=== PATIENT | female | born 2005 | race Caucasian/White ===

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

== ENCOUNTER → 2024-01-14 | Outpatient (CLI) | payer OTHER ==
[2024-01-14 13:41] LABS: HEMATOCRIT 39.3 % (36.0-47.0); HEMOGLOBIN 12.8 g/dl (12.0-15.5); MEAN CORPUSCULAR HEMOGLOBIN 29.2 pg (27.0-33.0); MEAN CORPUSCULAR HGB CONC 32.6 g/dl (32.0-36.5); MEAN CORPUSCULAR VOLUME 89.5 fl (80.0-96.0); PLATELET COUNT, AUTOMATED 338 10^3/uL (150-450); RED BLOOD COUNT 4.39 10^6/uL (4.00-5.40); WHITE BLOOD COUNT 7.2 10^3/uL (4.0-10.0)
[2024-01-14 14:12] LABS: BLOOD UREA NITROGEN 10 MG/DL (9-23); CALCIUM LEVEL 10.3 MG/DL (8.5-10.1); CARBON DIOXIDE LEVEL 29 MMOL/L (20-31); CHLORIDE LEVEL 104 MMOL/L (98-107); CREATININE FOR GFR 0.45 MG/DL (0.55-1.30); GLUCOSE, FASTING 75 MG/DL (60-100); POTASSIUM SERUM 4.2 MMOL/L (3.5-5.1); SODIUM LEVEL 139 MMOL/L (136-145)
== END ==
LOC: M LAB 12:26
PROVIDERS: ATTEND Plastic Surgery Surgery of the Hand
DX: N62 Hypertrophy of breast (principal)

== ENCOUNTER 2024-01-21 08:15 | Observation (INO) | payer OTHER ==
[~2024-01-21] VITALS: Ht 162.6 cm; Wt 64.0 kg
[2024-01-21] VITALS (7 sets, daily range): BP systolic 120–126; BP diastolic 69–73; TEMP 97.3–97.9; O2SAT 95–98
[2024-01-21] MEDS ORDERED: propofoL 200 MG/20 ML VIAL As Ordered ONE (09:21)
[2024-01-21] MEDS ORDERED: LIDOCAINE 2% 100MG/5ML SDV (FOR ANES.) As Ordered ONE (09:21)
[2024-01-21] MEDS ORDERED: ROCURONIUM BROMIDE 50MG/5ML VIAL As Ordered ONE (09:21)
[2024-01-21] MEDS ORDERED: fentaNYL 100 MCG/2 ML INJECTION As Ordered ONE (09:22)
[2024-01-21] MEDS ORDERED: MIDAZOLAM INJ 2MG/2ML VIAL As Ordered ONE (09:22)
[2024-01-21] MEDS: ceFAZolin SOD 2 GM in IV 1 EA IV ONE ×2 (10:54→16:57)
[2024-01-21] MEDS: HEPARIN SOD (PORCINE) 5000UNITS/ML 1ML VIAL/SYRINGE SQ ONE (10:58)
[2024-01-21] MEDS ORDERED: HYDROmorphone HCL 2MG/ML 1ML VIAL As Ordered ONE (11:20)
[2024-01-21] MEDS ORDERED: ONDANSETRON 4MG 2ML VIAL As Ordered ONE (11:24)
[2024-01-21] MEDS ORDERED: ACETAMINOPHEN 1000MG 100ML IV BAG As Ordered ONE (11:24)
[2024-01-21] MEDS ORDERED: METOCLOPRAMIDE INJ 10MG/2ML VIAL As Ordered ONE (11:24)
[2024-01-21] MEDS ORDERED: PHENYLephrine 500MCG 5ML (100MCG/ML) SYRINGE As Ordered ONE (11:45)
[2024-01-21] MEDS ORDERED: ePHEDrine SULFATE 25 MG/5 ML(5MG/ML) SYRINGE As Ordered ONE (12:04)
[2024-01-21] MEDS ORDERED: SUGAMMADEX SODIUM 500 MG/5 ML VIAL (BRIDION) As Ordered ONE (13:13)
[2024-01-21] MEDS: GENTAMICIN SULF 80MG/2ML VIAL As Ordered ONE (14:22)
[2024-01-21] MEDS: LIDOCAINE W/EPINEPHRINE 1% 20ML VIAL As Ordered ONE (14:22)
[2024-01-21] MEDS ORDERED: PERCOCET 5MG/325MG TAB PO PRN (15:15)
[2024-01-21] MEDS ORDERED: ACETAMINOPHEN TAB 650MG DOSE (2X325MG) PO PRN (15:15)
[2024-01-21] MEDS ORDERED: METOCLOPRAMIDE INJ 10MG/2ML VIAL IV PRN (15:25)
[2024-01-21] MEDS ORDERED: oxyCODONE 5MG TAB PO PRN (15:25)
[2024-01-21] MEDS ORDERED: HYDROMORPHONE HCL 0.5 MG/ 0.5 ML SYRINGE IV PRN (15:25)
[2024-01-21] MEDS ORDERED: fentaNYL 100 MCG/2 ML INJECTION IV PRN (15:25)
[2024-01-21] MEDS: ONDANSETRON 4MG 2ML VIAL IV PRN ×2 (16:04→19:45)
[2024-01-21] MEDS: LR 1,000 ML IV SCH (16:57)
[2024-01-21] MEDS: traMADol 50 MG TAB PO PRN (17:45)
[2024-01-22 02:00] VITALS: BP 121/67; TEMP 97.9; O2SAT 96
[2024-01-22 04:01] VITALS: BP 140/79; TEMP 97.9; O2SAT 96
[2024-01-22] MEDS ORDERED: TRAM50TA2 PO (10:32)
== END 2024-01-22 11:30 | disposition home or self-care (01) ==
LOC: M SDC 08:15 → M ED INP 08:16 → M MS5PR 16:20
PROVIDERS: ADMIT Plastic Surgery Surgery of the Hand; ATTEND Plastic Surgery Surgery of the Hand
DX: N62 Hypertrophy of breast (principal); M54.6 Pain in thoracic spine; M95.4 Acquired deformity of chest and rib
CPT/HCPCS: 19318; 81025; 88305; 96365; 96375; 96376; C9290; J0131; J0665; J0690; J1100; J1170; J1580; J2250; J2371; J2405; J2765; J3010

== ENCOUNTER → 2025-07-09 | Outpatient (REF) | payer OTHER ==
[~2025-07-09] MED LIST: TRAM50TA2 PO
[2025-07-09 18:52] LABS: GC DNA AMPLIFICATION NEGATIVE (NEGATIVE)
== END ==
LOC: M LAB REF 16:45
PROVIDERS: ATTEND Pediatrics
DX: Z11.3 Encounter for screening for infections with a predominantly sexual mode of transmission (principal)

== ENCOUNTER → 2025-07-09 | Outpatient (CLI) | payer OTHER | LOC: M LAB 12:38 | PROVIDERS: ATTEND Pediatrics | DX: Z11.3 Encounter for screening for infections with a predominantly sexual mode of transmission (principal) ==